=== PATIENT | male | born 1945 | race Caucasian/White ===

== ENCOUNTER 2025-10-16 23:33 | Emergency (ER) | payer OTHER, SELFPAY ==
--- OUTSIDE RECORDS SUMMARY | 2025-09-03 03:20 | XMS_ITS ---
Author Organization [facility] Address [address] [place], [place] [id number] Care Team Providers Care Dye Tub Operator Name Role Phone ROMEO MORILLO Unavailable [phone] iDck Ashton Unavailable Unavailable REASON FOR VISIT *General care Encounters Encounter Location Date Provider Diagnosis [facility] [address] [place], [place] [phone] 09/03/2025 ROMEO MORILLO Plan Of Treatment No Information Progress Notes * JORDIN JAVIERDOB:1945 (79 yo M)Acc No.[id number]:09/03/2025 Patient: JORDIN LANE Provider: Dayan Morillo DPM :1945 A ge:79 Y S ex:Male Date:09/03/2025 Address:[address] [place], [place] [id number] Subjective: * Chief Complaints: * * General care * Electronic signature of ROMEO MORILLO DPM on 10/17/2025 at 12:45 AM TEAM OTR TRUCK DRIVER Sign off status: Pending * Provider: Dayan Morillo DPM Date: Generated for Abhilash ng/Fajosemanuel/eTransmitting on: 1 12/18/2024 12:45 AM TEAM OTR TRUCK DRIVER
--- NOTE | ~2025-10-16 | XR_ITS ---
Examination: XR chest 1V portable Clinical History: SOB Comparison: None Technique: Portable AP Findings: Left tunneled central line. Heart size normal. Lungs clear. No acute bony abnormality. IMPRESSION: 1. No acute cardiopulmonary findings given portable technique. Recommend PA and lateral films with deep inspiration. Reviewed, dictated and finalized at location R. STRIAL CHEMIST IMPRESSION: 1. No acute cardiopulmonary findings given portable technique. Recommend PA an d lateral films with deep inspiration.
[2025-10-16 23:56] VITALS: BP 87/50; PULSE 98; RESP 16; TEMP 36.5; O2SAT 96
[2025-10-17] VITALS (10 sets, daily range): BP systolic 86–145; BP diastolic 49–111; PULSE 69–78; RESP 10–26; TEMP 36.4; O2SAT 96–100
--- NOTE | 2025-10-17 00:21 | ECG_ITS ---
Test Date: 2025-10-17 00:34:38 Measurements Intervals Rolla Rate: 75 P: 43 OK: 174 QRS: 31 QRSD: 110 T: 65 QT: 400 QTc: 450 Interpretive Statements SINUS RHYTHM LOW QRS VOLTAGE IN PRECORDIAL LEADS BORDERLINE ST-T WAVE ABNORMALITY- ANTERIOR LEADS BASELINE ARTIFACT- I, II, III, AVR, AVL ,AVF, V1-V6 BORDERLINE ECG No previous ECG available for comparison Electronically Signed On 10-17-2025 06:19:44 PLASTICS PROCESS HAND by Shashi Marte D.O.
[2025-10-17 00:36] LABS: Alanine Aminotransferase 12 U/L (6-50); Albumin Level 3.9 g/dL (3.5-5.1); Alkaline Phosphatase 106 U/L (38-126); Anion Gap 14 mmol/L (4-12); Aspartate Amino Transferase 20 U/L (17-59); Bilirubin,Total 0.7 mg/dL (0.2-1.3); Blood Urea Nitrogen 53 mg/dL (9-20); Calcium 8.4 mg/dL (8.4-10.2); Carbon Dioxide 17 mmol/L (22-30); Chloride 87 mmol/L (98-107); Estimated CRCL calculation 4 ml/min; Estimated Glomerular Filt Rate 4; Glucose 115 mg/dL (65-110); Potassium 4.9 mmol/L (3.4-5.0); Sodium 118 mmol/L (137-145); Total Protein 7.7 g/dL (6.3-8.2)
--- NOTE | 2025-10-17 00:45 | ED_ITS ---
HPI - General Adult General Chief complaint: Recheck/Abnormal Lab/Rx Stated complaint: abnormal labs hx kidney failure Time Seen by Provider: 10/17/25 00:15 History of Present Illness HPI narrative: 79-year-old male present [facility] the emergency department [facility] for evaluation for elevated creatinine. 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 Patient is not on dialysis. Patient states he has not had treatment recently due to declining health. 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 Related Data Allergies Allergy/AdvReac Type Severity Reaction Status Date / Time No Known Allergies Allergy Verified 10/16/25 23:35 Review of Systems 2 Review of Systems: All systems reviewed & are unremarkable except as noted in HPI and below Exam 2 Narrative: APPEARANCE: Cachectic and ill-appearing HEAD: normocephalic, atraumatic. EYES: PERRLA/EOMI, conjunctivae clear. NOSE: Normal no drainage EARS:TMS clear with good light reflex. THROAT: Pharynx clear, no exudate. NECK: Supple. No adenopathy, no masses. RESPIRATORY: Airway patent, respirations nonlabored. Clear to auscultation bilaterally, no rales, rhonchi, wheezing. CARDIOVASCULAR: Regular rate and rhythm without murmurs rubs or gallops. ABDOMINAL: Soft, nontender, nondistended, normal bowel sounds MUSCULOSKELETAL: Moves all extremities. Strength/ROM intact, No edema, No calf tenderness. NEURO: Alert. Cranial nerves II through XII intact. Good gait. Good coordination SKIN: Warm, dry. Normal Color Course Vital Signs Vital signs: Vital Signs Temperature 97.7 F 10/16/25 23:56 Pulse Rate 98 10/16/25 23:56 Respiratory Rate 16 10/16/25 23:56 Blood Pressure 87/50 L 10/16/25 23:56 Pulse Oximetry 96 10/16/25 23:56 Oxygen Delivery Room Air 10/16/25 23:56 Temperature 97.5 F L 10/17/25 00:02 Pulse Rate 69 10/17/25 05:45 Respiratory Rate 14 10/17/25 05:45 Blood Pressure 102/68 10/17/25 05:45 Pulse Oximetry 100 10/17/25 05:45 Oxygen Delivery Nasal Cannula 10/17/25 00:02 Oxygen Flow Rate 3 10/17/25 00:02 [facility] Narrative Medical decision making narrative: 79-year-old male presents emergency department for evaluation for worsening outpatient labs. Patient does have history of chronic kidney disease and is currently being treated at [facility] for Rosman cell carcinoma of the scalp. Patient gets his treatment at [place]. Patient is willing to go there or to [place]. Patient has a sodium of 118 and a creatinine of 11.4 with a BUN of 53. Patient has no prior history of being on dialysis. Case discussed with [facility] and patient was accepted for transfer. Patient was stable time of transfer. Differential Diagnosis Differential Diagnosis: Hypokalemia, hyponatremia, pre renal, obstructive uropathy Lab Data [facility] Lab Attestation statement: I personally reviewed the patient's lab results. 10/17/25 00:16 10/17/25 00:16 Labs: Lab Results 10/17/25 10/17/25 10/17/25 Range/Units 00:16 00:30 02:27 WBC 9.9 (4.5-10.0) K/mm3 RBC 3.66 L (4.6-6.20) M/mm3 Hgb 11.7 L (14.0-18.0) g/dL Hct 32.4 L (42.0-52.0) % MCV 88.5 (80-100) fl MCH 32.0 (26-34) pg MCHC 36.1 H (32-36) g/dl RDW 16.6 H (11.5-14.5) % Plt Count 237 (150-375) k/mm3 MPV 8.8 (7.4-10.4) fl Immature Gran % (Auto) Not Reportable Neut % (Auto) Not Reportable Lymph % (Auto) Not Reportable Archuleta % (Auto) Not Reportable Eos % (Auto) Not Reportable Baso % (Auto) Not Reportable Lymph # (Auto) Not Reportable Archuleta # (Auto) Not Reportable Eos # (Auto) Not Reportable Baso # (Auto) Not Reportable Abs Immat Gran (auto) Not Reportable Absolute Neuts (auto) Not Reportable Absolute Nucleated RBC Not Reportable Total Counted 100 Neutrophils % (Manual) 65 (46-73) % Band Neutrophils % Not Reportable Lymphocytes % (Manual) 24.0 (18-44) % Monocytes % (Manual) 9 (3-9) % Eosinophils % (Manual) 2 (0-4) % Nucleated RBC % Not Reportable Abs Lymphs (Manual) 2.37 (1.1-4.5) K/mm3 Abs Monocytes (Manual) 0.89 (0.1-0.90) K/mm3 Absolute Eos (Manual) 0.19 (0.02-0.50) K/mm3 Platelet Estimate Adequate (Adequate) Anisocytosis 1+ Ovalocytes 1+ [place] Cells 1+ Schistocytes Rare Sodium 118 L* (137-145) mmol/L Potassium 4.9 (3.4-5.0) mmol/L Chloride 87 L (98-107) mmol/L Carbon Dioxide 17 L (22-30) mmol/L Anion Gap 14 H (4-12) mmol/L BUN 53 H (9-20) mg/dL Creatinine 11.44 H (0.7-1.3) mg/dL Estim Creat Clear Calc 4 ml/min Estimated GFR 4 L (59 - ) Glucose 115 H (65-110) mg/dL Calcium 8.4 (8.4-10.2) mg/dL Total Bilirubin 0.7 (0.2-1.3) mg/dL AST 20 (17-59) U/L ALT 12 (6-50) U/L Alkaline Phosphatase 106 (38-126) U/L NT-Pro-B Natriuret Pep 772 H (19.9-100) pg/mL Total Protein 7.7 (6.3-8.2) g/dL Albumin 3.9 (3.5-5.1) g/dL Ur Random Sodium 53 meq/L Urine Creatinine 157.1 mg/dL Influenza A (RT-PCR) Negative (Negative) Influenza B (RT-PCR) Negative (Negative) RSV (RT-PCR) Negative (Negative) SARS-CoV-2 RNA (RT-PCR) Negative (Negative) Imaging Data Radiologist's impression: ITS Impressions Chest X-Ray 10/17/25 06:45 IMPRESSION: 1. No acute cardiopulmonary findings given portable technique. Recommend PA and lateral films with deep inspiration. Discharge Plan Discharge Clinical Impression: Acute kidney injury superimposed on CKD Patient Disposition: Acute Care Hospital Condition: Serious Instructions: Antibiotic Form Patient Language: Mongolian Follow-up/Referrals: PHYSICIAN,WEB CONTENT PRODUCER [Primary Care Provider, Internal Medicine]
--- OUTSIDE RECORDS SUMMARY | 2025-10-17 00:46 | XMS_ITS | Clinical Summary ---
Author Organization [facility] Address [address] [place] [address] Care Team Providers Care Shaping Machine Operator Name Role Phone Dick Ashton MD Primary Care Provider Social History Tobacco Use Types Packs/Day Years Used Date Smoking Tobacco: Never Assessed Sex and Gender Information Value Date Recorded Sex Assigned at Not on file Legal Sex Male 5:25 PM CDT Gender Identity Not on file Sexual Orientation Not on file Last Filed Vital Signs Vital Sign Reading Time Taken Comments Blood Pressure 124/70 06/15/2011 1:30 PM CDT Pulse 107 06/15/2011 1:30 PM CDT Temperature - - Respiratory Rate - - Oxygen Saturation - - Inhaled Oxygen Concentration - - Weight 76.2 kg (168 lb) 06/15/2011 1:30 PM CDT Height 170.2 cm (5' 7) 06/15/2011 1:30 PM CDT Body Mass Index 26.31 06/15/2011 1:30 PM CDT Plan of Treatment Health Maintenance Due Date Last Done Comments DTaP, Tdap and Td Vaccines (1 - Tdap) 1962 Pneumococcal Vaccine: 50+ Years (1 of 1 - PCV) 1993 Zoster Vaccines (1 of 2) 1993 Annual Medicare Wellness Visit 2008 RSV Immunization or 60+ Years (1 - 1-dose 75+ series) 2018 COVID-19 Vaccine ( - season) 2025 02/09/2022, 07/28/2021, 01/02/2021, Additional history exists Influenza Adult (#1) 2025 09/13/2019, 09/18/20 05 Hepatitis A Vaccines Aged Out No long er eligible based on patient's age to complete this topic Meningococcal B Vaccine Aged Out No l onger eligible based on patient's age to complete this topic Meningococcal Vaccine Aged Out No christine sj eligible based on patient's age to complete this topic RSV Immunizations Under 20 Months Aged Out No longer eligible based on patient's age to complete this topic Insurance [facility] Care Teams Shaping Machine Operator Relationship Specialty Start Date End Date Dick Ashton MD [address] [place] [address] [place] [address] PCP - General FAMILY PRACTICE 11/23/21
--- OUTSIDE RECORDS SUMMARY | 2025-10-17 00:46 | XMS_ITS | Encounter Summary ---
Author Organization [facility] Address [address] [place] [address] Care Team Providers Care Ssis Architect Name Role Phone Dick Ashton MD Primary Care Provider Encounter Details Date Type Department Care Team (Late st Contact Info) Description 10/16/2025 Lab Requisition [facility] [address] [place] [address] Kirsten Baker [address] [place] [phone] Social History Tobacco Use Types Packs/Day Years Used Date Smoking Tobacco: Never Smokeless Tobacco: Never Alcohol Use Standard Drinks/Week Comments Yes 2 (1 standard drink = 0.6 oz pur e alcohol) social Sex and Gender Information Value Date Recorded Sex Assigned at Not on file Legal Sex Male 9:37 PM DOUBLE BACK OPERATOR Gender Identity Not on file Sexual Orientation Not on file documented as of this encounter Plan of Treatment Not on file documented as of this encounter Procedures Procedure Name Priority Date/Time Associated Diagnosis Comments COMPREHENSIVE METABOLIC PANEL STAT 10/16/2025 5:17 PM DOUBLE BACK OPERATOR documented in this encounter Results * (ABNORMAL) COMPREHENSIVE METABOLIC PANEL (10/16/2025 5:17 PM DOUBLE BACK OPERATOR) Glucose 143(H) 70 - 99 mg/dL 10/16/2025 5:57 PM DOUBLE BACK OPERATOR [facility] Sodium 121(LL) 136 - 145 mmol/L 10/16/2025 5:57 PM [facility] Potassium 5.1 3.5 - 5.1 mmol/L 10/16/2025 5:57 PM [facility] Chloride 88(L) 98 - 107 mmol/L 10/16/2025 5:57 PM [facility] CO2 15(L) 22 - 29 mmol/L 10/16/2025 5:57 PM [facility] Calcium 8.2(L) 8.4 - 10.4 mg/dL 10/16/2025 5:57 PM [facility] Anion Gap 18(H) 6 - 16 mmol/L 10/16/2025 5:57 PM [facility] BUN 55(H) 7 - 26 mg/dL 10/16/2025 5:57 PM [facility] Creatinine 11.48(H) 0.70 - 1.30 mg/dL 10/16/2025 5:57 PM [facility] Alkaline Phosphatase 100 40 - 150 U/L 10/16/2025 5:57 PM [facility] ALT 7 6 - 57 U/L 10/16/2025 5:57 PM [facility] AST 17 10 - 48 U/L 10/16/2025 5:57 PM [facility] Protein Total 7.0 6.4 - 8.3 gm/dL 10/16/2025 5:57 PM [facility] Albumin 2.6(L) 3.1 - 4.5 gm/dL 10/16/2025 5:57 PM [facility] Bilirubin Total 0.4 0.2 - 1.2 mg/dL 10/16/2025 5:57 PM [facility] eGFR by CKD-EPI 4(L) >=90 mL/min/1. 73 m2 10/16/2025 5:57 PM [facility] Comment:Estimated Glomerular Filtration Rate (eGFR) calculated using the CKD-EPI Creatinine Equation (2020), per the National Kidney Foundation and [place] Society of Nephrology recommendations. Blood BLOOD SPECIMEN / Unknown Venipuncture / Unknown 10/16/2025 5:17 PM DOUBLE BACK OPERATOR 10/16/2025 5:17 PM DOUBLE BACK OPERATOR us Kirsten Pendegraft LAB - CHEMISTRY ORDERABLES Guerita l Result [facility] [address] [place] [address] documented in this encounter Visit Diagnoses Not on filedocumented in this encounter Care Teams Ssis Architect Relationship Specialty Start Date End Date Dick Ashton MD PCP - General Family Medicine 09/13/18 documented as of this encounter
--- OUTSIDE RECORDS SUMMARY | 2025-10-17 00:46 | XMS_ITS | Encounter Summary ---
Author Organization [facility] Address [address] [place] [address] Care Team Providers Care Automotive Brake Specialist Name Role Phone Dick Ashton MD Primary Care Provider Encounter Details Date Type Department Care Team (Late st Contact Info) Description 11/10/2022 Lab Requisition [facility] Derm[facility] Lab [address] [place] [address] Karson Mays MD [address] [place] [address] Social History Tobacco Use Types Packs/Day Years Used Date Smoking Tobacco: Never Smokeless Tobacco: Never Alcohol Use Standard Drinks/Week Comments Yes 2 (1 standard drink = 0.6 oz pur e alcohol) social Sex and Gender Information Value Date Recorded Sex Assigned at Not on file Legal Sex Male 9:37 PM ROLLING ATTENDANT Gender Identity Not on file Sexual Orientation Not on file documented as of this encounter Plan of Treatment Not on file documented as of this encounter Procedures Procedure Name Priority Date/Time Associated Diagnosis Comments DERMATOPATHOLOGY Routine 2022 12:0 0 AM ROLLING ATTENDANT documented in this encounter Results * DERMATOPATHOLOGY (2022 12:00 AM ROLLING ATTENDANT) Case Report Dermatopathology Report Case: [id number] Authorizing Provider: Karson Mays MD Collected: 2022 12:00 AM Ordering Location: [facility] DermPath Lab Received: 11/10/2022 02:40 PM Pathologist: Jumana Farrell MD Specimens: A) - Skin, mid anterior scalp B) - Skin, left nasal tip 3 4:05 PM [facility] Final Diagnosis Specimen A. 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 The specimen consists of a shave biopsy measuring 5x5x2 mm. Jar 0. Specimen B: Received is one formalin filled container labeled with the patient's name and designated left nasal tip. The specimen consists of a shave biopsy measuring 4x3x1 mm. Jar 0. 3 4:05 PM [facility] Microscopic Description Specimen A. SKIN, mid anterior scalp: Sections show a tumor composed of uniform, small, round to oval cells with a vesicular nucleus and small nucleoli. There are numerous mitoses and focal necrosis. The cells are present as sheets and nests. Pancytokeratin and CK20 immunostain shows paranuclear dot positivity. Synaptophysin and chromogranin are positive in the tumor cells. CD43 and TTF1 are nonreactive. Specimen B. SKIN, left nasal tip: Within the dermis there are aggregates of basaloid cells with a high nuclear to cytoplasmic ratio and peripheral palisading. 3 4:05 PM [facility] Disclaimer An external and internal positive and negative controls are appropriate for the histochemical, immunohistochemical and immunofluorescence stain(s) in this case (if any), except where stated explicitly. The performance characteristics of the stain(s) cited in this report were developed and its performance characteristic determined by the Dermatopathology Laboratory at [facility], directed by Dr. Aakash Farrell. These tests need not be, and therefore are not, approved by the [place] Food and Drug Administration. The tests are used for clinical purposes. Billing Codes Specimen Charges Stain Charges 37804 15844 1 1 [id number] 69143 07484 04705 70796 1 1 1 1 1 1 3 4:05 PM ROLLING ATTENDANT DERMATOPATHOLOGY LABORATORY Embedded Images 3 4:05 PM ROLLING ATTENDANT DERMATOPATHOLOGY LABORATORY Pathology/Cytology TISSUE SPECIMEN FROM SKIN / Unknown 2022 11/10/2022 2:40 PM ROLLING ATTENDANT Miscellaneous samples (specimen) TISSUE SPECIMEN FROM SKIN / Unknown 2022 11/10/2022 2:40 PM ROLLING ATTENDANT Karson Mays MD LAB - PATHOLOGY/CYTOLOGY ORDER JARED Final Result DERMATOPATHOLOGY LABORATORY [facility] - Department of Dermatology [facility] Specialized Medicine [address] [place] [address], [address] [phone] documented in this encounter Visit Diagnoses Not on filedocumented in this encounter Care Teams Automotive Brake Specialist Relationship Specialty Start Date End Date Dick Ashton MD PCP - General Family Medicine 09/13/18 documented as of this encounter
--- OUTSIDE RECORDS SUMMARY | 2025-10-17 00:46 | XMS_ITS | Encounter Summary ---
Author Organization [facility] Address [address] [place] [address] Care Team Providers Care Furniture Lumber Production Worker Name Role Phone Dick Ashton MD Primary Care Provider Encounter Details Date Type Department Care Team (Late st Contact Info) Description 11/21/2020 Lab Requisition [facility] Care DermPath Lab [address] [facility] [place] [address] Karson Mays MD [address] [place] [place] [address] Social History Tobacco Use Types Packs/Day Years Used Date Smoking Tobacco: Never Smokeless Tobacco: Never Alcohol Use Standard Drinks/Week Comments Yes 2 (1 standard drink = 0.6 oz pur e alcohol) social Sex and Gender Information Value Date Recorded Sex Assigned at Not on file Legal Sex Male 9:37 PM DINING SERVICES DIRECTOR Gender Identity Not on file Sexual Orientation Not on file documented as of this encounter Plan of Treatment Not on file documented as of this encounter Procedures Procedure Name Priority Date/Time Associated Diagnosis Comments DERMATOPATHOLOGY Routine 11/20/2020 3:27 AM DINING SERVICES DIRECTOR documented in this encounter Results * DERMATOPATHOLOGY (11/20/2020 3:27 AM DINING SERVICES DIRECTOR) Case Report Dermatopathology Report Case: [id number] Authorizing Provider: Karson Mays MD Collected: 11/20/2020 03:27 AM Ordering Location: [facility] DermPath Lab Received: 11/21/2020 07:11 AM Pathologist: Antonieta Welch MD Specimen: Skin, left lower forehead 1:31 PM [facility] Final Diagnosis Specimen A. SKIN, left lower forehead: BENIGN VERRUCOUS KERATOSIS, INFLAMED (L82.1) 1:31 PM [facility] DERMATOPATHOLOGY [facility]ORATORY at [address] DINING SERVICES DIRECTOR Clinical History BCCA vs SCCA. Path # [id number]. 1:31 PM [facility] Gross Description Specimen A: Received is one formalin filled container labeled with the patient's name and designated left lower forehead. The specimen consists of a shave biopsy measuring 5a0x0ij. Jar 0. 1:31 PM [facility] Microscopic Description Specimen A. SKIN, left lower forehead: Sections show hyperkeratosis, papillomatosis, hypergranulosis, and acanthosis. Inflammatory cells are present within the dermis. These histological findings can be seen in a verruca vulgaris or a seborrheic keratosis. 1:31 PM [facility] DERMAT[facility] Disclaimer An external and internal positive and negative controls are appropriate for the histochemical, immunohistochemical and immunofluorescence stain(s) in this case (if any), except where stated explicitly. The performance characteristics of the stain(s) cited in this report were developed and its performance characteristic determined by the Dermatopathology Laboratory at [facility], directed by Dr. Aakash Farrell. These tests need not be, and therefore are not, approved by the [place] Food and Drug Administration. The tests are used for clinical purposes. Billing Codes Specimen Charges Stain Charges 70793 1 1:31 PM [facility] DERMATOPATHOLOGY [facility]ATORY Embedded Images 1:31 PM [facility] D[facility]MAT[facility] Pathology/Cytolo gy TISSUE SPECIMEN FROM SKIN / Unknown 11/20/2020 3:27 AM DINING SERVICES DIRECTOR 11/21/2020 7:11 AM [facility] Karson Mays MD LAB - PATHOLOGY/CYTOLOGY ORDER JARED Final Result DERMATOPATHOLOGY LABORATORY [facility] - Department of Dermatology [facility] Medicine [address] [place] [address], [address] [phone] documented in this encounter Visit Diagnoses Not on filedocumented in this encounter Care Teams Furniture Lumber Production Worker Relationship Specialty Start Date End Date Dick Ashton MD PCP - General Family Medicine 09/13/18 documented as of this encounter
--- OUTSIDE RECORDS SUMMARY | 2025-10-17 00:46 | XMS_ITS | Encounter Summary ---
Author Organization [facility] Address [address] [place] [address] Care Team Providers Care Foreign Exchange Services Manager Name Role Phone Dick Ashton MD Primary Care Provider Encounter Details Date Type Department Care Team (Late st Contact Info) Description 10/20/2021 Lab Requisition [facility] Care DermPath Lab [address] [place] [phone] Karson Mays MD [address] [place] [address] Social History Tobacco Use Types Packs/Day Years Used Date Smoking Tobacco: Never Smokeless Tobacco: Never Alcohol Use Standard Drinks/Week Comments Yes 2 (1 standard drink = 0.6 oz pur e alcohol) social Sex and Gender Information Value Date Recorded Sex Assigned at Not on file Legal Sex Male 9:37 PM SYSTEMS ENG Gender Identity Not on file Sexual Orientation Not on file documented as of this encounter Plan of Treatment Not on file documented as of this encounter Procedures Procedure Name Priority Date/Time Associated Diagnosis Comments DERMATOPATHOLOGY Routine 10/20/2021 12:0 0 AM SYSTEMS ENG documented in this encounter Results * DERMATOPATHOLOGY (10/20/2021 12:00 AM SYSTEMS ENG) Case Report Dermatopathology Report Case: [id number] Authorizing Provider: Karson Mays MD Collected: 10/20/2021 12:00 AM Ordering Location: [facility] Lab Received: 10/20/2021 02:55 PM Pathologist: Jolene Stuart MD Specimens: A) - Skin, mid anterior scalp B) - Skin, left mid back 12:10 PM [facility] DERMATOPATHOLOGY LABORATORY Final Diagnosis Specimen A. 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 SKIN, left mid back: SEBORRHEIC KERATOSIS (L82.1) 12:10 PM [facility] DERMATOPATHOLOGY LABORATORY at 1210 SYSTEMS ENG Clinical History A: BCCA vs SCCA. Path # [id number]. B: BCCA vs SCCA. Path # [id number]. 12:10 PM [facility] DERMATOPATHOLOGY LABORATORY Gross Description Specimen A: Received is one formalin filled container labeled with the patient's name and designated mid anterior scalp. The specimen consists of a shave measuring 7l8u4cg. Jar 0. Specimen B: Received is one formalin filled container labeled with the patient's name and designated left mid back. The specimen consists of a shave measuring [id number]. Jar 0. 12:10 PM [facility] DERMATOPATHOLOGY LABORATORY Microscopic Description Specimen A. SKIN, mid anterior scalp: The epidermis shows parakeratosis, full thickness disorderly maturation of keratinocytes, mitoses at different levels, and dyskeratotic cells. The proliferation extends down adnexal structures. Specimen B. SKIN, left mid back: Sections show an acanthotic lesion composed of relatively uniform keratinocytes. There is hyperkeratosis and pseudo horn cysts formation. 12:10 PM [facility] DERMATOPATHOLOGY LABORATORY Disclaimer An external and internal positive and negative controls are appropriate for the histochemical, immunohistochemical and immunofluorescence stain(s) in this case (if any), except where stated explicitly. The performance characteristics of the stain(s) cited in this report were developed and its performance characteristic determined by the Dermatopathology Laboratory at [facility], directed by Dr. M. Tracy Farrell. These tests need not be, and therefore are not, approved by the [place] Food and Drug Administration. The tests are used for clinical purposes. Billing Codes Specimen Charges Stain Charges 77383 57555 1 1 1 12:10 PM SYSTEMS ENG DERMATOPATHOLOGY LABORATORY Embedded Images 12:10 PM SYSTEMS [facility] DERMATOPATHOLOGY LABORATORY Pathology/Cytology TISSUE SPECIMEN FROM SKIN / Unknown 10/20/2021 10/20/2021 2:55 PM SYSTEMS ENG Miscellaneous samples (specimen) TISSUE SPECIMEN FROM SKIN / Unknown 10/20/2021 10/20/2021 2:55 PM SYSTEMS ENG us Karson Mays MD LAB - PATHOLOGY/CYTOLOGY ORDER JARED Final Result DERMATOPATHOLOGY LABORATORY [facility] - Department of Dermatology [facility] [place] [facility] Medicine [address] [place] [address], [address] [phone] documented in this encounter Visit Diagnoses Not on filedocumented in this encounter Care Teams Foreign Exchange Services Manager Relationship Specialty Start Date End Date Dick Ashton MD PCP - General Family Medicine 09/13/18 documented as of this encounter
--- OUTSIDE RECORDS SUMMARY | 2025-10-17 00:46 | XMS_ITS | Patient Health Record ---
Author Organization [facility] Address [address] [place], [place] [id number] Care Team Providers Care Clinical Appeals Rn Name Role Phone ROMEO WASHINGTON Unavailable [phone] Dick Ashton Unavailable Unavailable Allergies No Known Allergies Reason For Referral Reason Referral Request () Diagnosis 1 Pain in right toe(s) (M79.674) Diagnosis 2 Pain in left toe(s) (M79.675) Referral Organization [facility] Referring Provider First Name ROMEO Referring Provider Last Name PADMINI Referring Provider Speciality Podiatry Referred Provider Dick Ashton Referred Provider Specialty Family Medic ine Referral Priority Routine Reason Essence Referral ([id number]) 08/22/2025 REF EXT +1 ( 2 TOTAL ) / REF EXP EXT 02/05/2026. 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, bilateral legs (I70.213) Diagnosis 3 Pain in right toe(s) (M79.674) Diagnosis 4 Tinea unguium (B35.1 ) Referred Organization [facility] Referred Provider ROMEO WASHINGTON Referred Address [address],[place], [id number], Referred Provider Specialty Podiatry Referral Priority Routine Reason ESSENCE REFERRAL REQ UEST ( APPOINTMENT: 06/05/2025 ) Diagnosis 1 Fungal infection of nail (B35.1) Diagnosis 2 Pain in left toe(s) (M79.675) Diagnosis 3 Pain in right toe(s) (M79.674) Diagnosis 4 Atherosclerosis of n ative arteries of extremities with intermittent claudication, bilateral legs (I70.213) Referral Organization [facility] Referring Provider First Name ROMEO Referring Provider Last Name [facility] Referring Provider Speciality Podiatry Referred Provider Dick Ashton Referred Provider Specialty General Prac sonia Referral Priority Routine Reason ESSENCE REFERRAL REQ UEST ( APPOINTMENT: 09/03/2025 ) Diagnosis 1 Pain in right toe(s) (M79.674) Diagnosis 2 Pain in left toe(s) (M79.675) Diagnosis 3 Fungal infection of nail (B35.1) Diagnosis 4 Atherosclerosis of n ative arteries of extremities with intermittent claudication, bilateral legs (I70.213) Referral Organization [facility] Referring Provider First Name ROMEO Referring Provider Last Name PADMINI Referring Provider Speciality Podiatry Referred Provider Dick Ashton Referred Provider Specialty General Prac sonia Referral Priority Routine Medications Medication SIG (Take, Route, Frequency, Duration) Notes Start Date End Date Status loperamide hydrochloride 2 MG Oral Tablet ORAL loperamide hydrochloride 2 M G Oral TabletOriginal Medicationloperamide hydrochloride 2 MG Oral Tablet *Reorder from [employer] for eRx and Interaction Alerts* 4 Active Metoprolol Tartrate 100 MG Oral Tablet ORAL metoprolol tartrate 100 MG Oral TabletOriginal Medicationmetoprolol tartrate 100 MG Oral Tablet *Reorder from [employer] for eRx and Interaction Alerts* 4 Active ranitidine 150 MG Oral Tablet ORAL ranitidine 150 MG Oral TabletOriginal Medicationranitidine 150 MG Oral Tablet *Reorder from [employer] for eRx and Interaction Alerts* 4 Active azaTHIOprine 100 MG Oral Tablet ORAL azathioprine 100 MG Oral TabletOriginal Medicationazathioprine 100 MG Oral Tablet *Reorder from [employer] for eRx and Interaction Alerts* 4 Active terazosin 5 MG Oral Capsule ORAL terazosin 5 MG Oral CapsuleOriginal Medicationterazosin 5 MG Oral Capsule *Reorder from [employer] for eRx and Interaction Alerts* 4 Active 0.8 ML adalimumab 50 MG/ML Prefilled Syringe [Humira] 0.8 ML adalimumab 50 MG/ML Prefilled Syringe [Humira]Original Medication0.8 ML adalimumab 50 MG/ML Prefilled Syringe [Humira] *Reorder from [facility] for eRx and Interaction Alerts* 4 Active amitriptyline hydrochloride 50 MG Oral Tablet ORAL amitriptyline hydrochloride 50 MG Oral TabletOriginal Medicationamitriptyline hydrochloride 50 MG Oral Tablet *Reorder from [facility] for eRx and Interaction Alerts* 4 Active aspirin 81 MG Delayed Release Oral Tablet ORAL aspirin 81 MG Delayed Releas e Oral TabletOriginal Medicationaspirin 81 MG Delayed Release Oral Tablet *Reorder from [facility] for eRx and Interaction Alerts* 4 Active atropine sulfate 0.025 MG / diphenoxylate hydrochloride 2.5 MG Oral Tablet [Lomotil] ORAL atropine sulfate 0.025 MG / diphenoxylate hydrochloride 2.5 MG Oral Tablet [Lomotil]Original Medicationatropine sulfate 0.025 MG / diphenoxylate hydrochloride 2.5 MG Oral Tablet [Lomotil] *Reorder from [facility] 4 Active cholecalciferol 0.025 MG Oral Capsule ORAL cholecalciferol 0.025 MG Ora l CapsuleOriginal Medicationcholecalciferol 0.025 MG Oral Capsule *Reorder from [facility] for eRx and Interaction Alerts* 4 Active citalopram 40 MG Oral Tablet ORAL citalopram 40 MG Oral TabletOriginal Medicationcitalopram 40 MG Oral Tablet *Reorder from [facility] for eRx and Interaction Alerts* 4 Active dicyclomine hydrochloride 10 MG Oral Capsule [Bentyl] ORAL dicyclomine hydrochloride 10 MG Oral Capsule [Bentyl]Original Medicationdicyclomine hydrochloride 10 MG Oral Capsule [Bentyl] *Reorder from [facility] for eRx and Interaction Alerts* 4 Active ferrous sulfate 325 MG Oral Tablet ORAL ferrous sulfate 325 MG Oral TabletOriginal Medicationferrous sulfate 325 MG Oral Tablet *Reorder from [facility] for eRx and Interaction Alerts* 4 Active Immunizations Vaccine Route Administration Date Status Comme nts Pneumococcal polysaccharide PPV23 Unknown 08/12/2023 Ad ministered Influenza, high dose seasonal Unknown 08/12/2023 Admini stered Social History Tobacco Use: Social History Observation Description Date Details (start date - stop date) Never Smoker NA - NA Social History Drug/Alcohol: Social Info Question Answer Notes AUDIT-C (Standard) Did you have a drink containing alcohol in the past year? Yes How often did you have a drink containing alcohol in the past year? 2 to 4 times a month (2 points) How many drinks did you have on a typical day when you were drinking in the past year? 1 or 2 drinks (0 point) How often did you have six or more drinks on one occasion in the past year? Declined to specify (0 point) Points 2 Interpretation Negative Tobacco Use: Social Info Question Answer Notes Tobacco Control (Standard) Tobacco use: Nonsmoker Additional Details Category Social Info Options Details Migrated Social History Migrated Social History History of tobacco use : , Smoking Status : Former tobacco user Vital Signs Height-cm 170.18 cm 06/05/2025 Weight-kg 73.48 kg 06/05/2025 Height 67 in 06/05/2025 Weight 162 lbs 06/05/2025 BMI 25.37 kg/m2 06/05/2025 Encounters Encounter Location Date Provider Diagnosis [facility] [address] [facility] [address] [place], [place] [id number] 06/05/2025 ROMEO WASHINGTON Fungal infection of nail B35.1 ; Pain in right toe(s) M79.674 ; Pain in left toe(s) M79.675 and Atherosclerosis of standing rock arteries of extremities with intermittent claudication, bilateral legs I70.213 Assessments Encounter Date Diagnosis (ICD Code) Assessment Notes Treatment Notes Treatment Clinical Notes Section Notes 06/05/2025 Fungal infection of nail (ICD-10 - B35.1) Nails 1-5 Bilateral were debrided extensively with nail nippers and emery board, reducing length and girth to pink healthy tissue with any subungual debris and necrotic tissue removed 06/05/2025 Pain in right toe(s) (ICD-10 - M79.674) 06/05/2025 Pain in left toe(s) (ICD-10 - M79.675) 06/05/2025 Atherosclerosis of standing rock arteries of extremities with intermittent claudication, bilateral legs (ICD-10 - I70.213) Plan Of Treatment No Information Insurance Providers Payer Name Payer Address Payer Phone Subscriber Number Group Number Insured Name Patient Relationship to Insured Coverage Start Date Coverage End Date [employer] [address] [place] [id number] JORDIN JAVIER Self - patient is the insured Medical (General) History Surgical History Surgery Date(Month/Year) Hernia 194, 1974 bowel resection 1998,2008,2015 hip replacement left and right , 2000
--- OUTSIDE RECORDS SUMMARY | 2025-10-17 00:46 | XMS_ITS | Encounter Summary ---
Author Organization [facility] Address [address] [place] [address] Care Team Providers Care Results Engineer Name Role Phone Dick Ashton MD Primary Care Provider Encounter Details Date Type Department Care Team (Late st Contact Info) Description 03/12/2003 Abstract [facility] Clinics Conversion Md, Generic Conversion, Social History Tobacco Use Types Packs/Day Years Used Date Smoking Tobacco: Never Assessed Sex and Gender Information Value Date Recorded Sex Assigned at Not on file Legal Sex Male 5:25 PM CDT Gender Identity Not on file Sexual Orientation Not on file documented as of this encounter Plan of Treatment Not on file documented as of this encounter Visit Diagnoses Not on filedocumented in this encounter Care Teams Results Engineer Relationship Specialty Start Date End Date Dick Ashton MD [address] [place] [address] [address] [place] [address] PCP - General FAMILY PRACTICE 11/23/21 documented as of this encounter
--- OUTSIDE RECORDS SUMMARY | 2025-10-17 00:46 | XMS_ITS | Encounter Summary ---
Author Organization [facility] Address [address] [place] [address] Care Team Providers Care Prizer Hand Name Role Phone Dick Ashton MD Primary Care Provider Encounter Details Date Type Department Care Team (Late st Contact Info) Description 01/29/2020 Lab Requisition [facility] Care DermPath Lab [address] 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 Gender Identity Not on file Sexual Orientation Not on file documented as of this encounter Plan of Treatment Not on file documented as of this encounter Procedures Procedure Name Priority Date/Time Associated Diagnosis Comments DERMATOPATHOLOGY Routine 01/29/2020 12:0 0 AM CDT documented in this encounter Results * DERMATOPATHOLOGY (01/29/2020 12:00 AM CDT) Case Report Dermatopathology Report Case: [id number] Authorizing Provider: Karson Mays MD Collected: 01/29/2020 12:00 AM Ordering Location: [facility] DermPath Lab Received: 01/29/2020 02:43 PM Pathologist: Jumana Farrell MD Specimens: A) - Skin, right sideburn B) - Skin, right lateral knee C) - Skin, left mid back 0 12:17 PM T DERMATOPATHOLOGY LABORATORY Final Diagnosis Specimen A. SKIN, right sideburn: SQUAMOUS CELL CARCINOMA, WELL DIFFERENTIATED (C44.329) Specimen B. SKIN, right lateral knee: ACANTHOSIS AND HYPERKERATOSIS (L98.8) (see microscopic description and comment) Specimen C. SKIN, left mid back: BENIGN VERRUCOUS KERATOSIS, INFLAMED WITH OVERLYING CUTANEOUS HORN(L82.1) 0 12:17 PM T DERMATOPATHOLOGY LABORATORY at 1217 CDT Clinical History A: Path# [id number] B: Path# [id number] C: Path# [id number] 0 12:17 PM CDT DERMATOPATHOLOGY LABORATORY Gross Description Specimen A: Received is one formalin filled container labeled with the patient's name and designated right sideburn. The specimen consists of a shave biopsy measuring 8x7x2 mm. Jar 0. Specimen B: Received is one formalin filled container labeled with the patient's name and designated right lateral knee. The specimen consists of a shave biopsy (2 pieces) measuring 7x6x1 and 4x2x1 mm. Jar 0. Specimen C: Received is one formalin filled container labeled with the patient's name and designated left mid back. The specimen consists of a shave biopsy measuring [id number] mm. Jar 0. 0 12:17 PM CDT DERMATOPATHOLOGY LABORATORY Microscopic Description Specimen A. SKIN, right sideburn: Arising in the epidermis and extending into the dermis there are irregularly shaped aggregates of keratinocytes showing evidence of premature cornification. Specimen B. SKIN, right lateral knee: Sections show a superficial biopsy with acanthosis and hyperkeratosis. There is increased pigmentation along the basal layer of the epidermis, especially at the base of the elongated rete ridges. There is minimal dermis present for evaluation with scattered fibroblasts. Additional deeper sections were obtained and reviewed. COMMENT: These histological findings can be seen in a superficial biopsy of a dermatofibroma or a lentigo simplex with underlying fibrosis. The recurrent nature in the clinical history is noted; however, no prior biopsy is available for review. Specimen C. SKIN, left mid back: There is a column of marked compact hyperkeratosis, beneath which there is hyperkeratosis, papillomatosis, hypergranulosis, and acanthosis. Inflammatory cells are present within the dermis. These histological findings can be seen in a verruca vulgaris or a seborrheic keratosis. 0 12:17 PM CDT DERMATOPATHOLOGY LABORATORY Disclaimer An external and internal positive and negative controls are appropriate for the histochemical, immunohistochemical and immunofluorescence stain(s) in this case (if any), except where stated explicitly. The performance characteristics of the stain(s) cited in this report were developed and its performance characteristic determined by the Dermatopathology Laboratory at [facility], directed by Dr. Aakash Farrell. These tests need not be, and therefore are not, approved by the [place] Food and Drug Administration. The tests are used for clinical purposes. Billing Codes Specimen Charges Stain Charges 63939 18723 45229 1 1 1 0 12:17 PM CDT DERMATOPATHOLOGY LABORATORY Embedded Images 0 12:17 PM CDT DERMATOPATHOLOGY LABORATORY Pathology/Cytology TISSUE SPECIMEN FROM SKIN / Unknown 01/29/2020 01/29/2020 2:43 PM CDT Miscellaneous samples (specimen) TISSUE SPECIMEN FROM SKIN / Unknown 01/29/2020 01/29/2020 2:43 PM CDT Miscellaneous samples (specimen) TISSUE SPECIMEN FROM SKIN / Unknown 01/29/2020 01/29/2020 2:43 PM CDT us Karson Mays MD LAB - PATHOLOGY/CYTOLOGY ORDER JARED Final Result DERMATOPATHOLOGY LABORATORY [facility] - Department of Dermatology [address] [place] [address], [facility] [phone] documented in this encounter Visit Diagnoses Not on filedocumented in this encounter Care Teams Prizer Hand Relationship Specialty Start Date End Date Dick Ashton MD PCP - General Family Medicine 09/13/18 documented as of this encounter
--- OUTSIDE RECORDS SUMMARY | 2025-10-17 00:46 | XMS_ITS | Encounter Summary ---
Author Organization [facility] Address [address] [place] [address] Care Team Providers Care Auto Bumper Mechanic Name Role Phone Dick Ashton MD Primary Care Provider Encounter Details Date Type Department Care Team (Late st Contact Info) Description 05/18/2023 Lab Requisition [facility] - DermPath Lab [address] [facility] [place] [phone] Karson Mays MD [address] [place] [address] Social History Tobacco Use Types Packs/Day Years Used Date Smoking Tobacco: Never Smokeless Tobacco: Never Alcohol Use Standard Drinks/Week Comments Yes 2 (1 standard drink = 0.6 oz pur e alcohol) social Sex and Gender Information Value Date Recorded Sex Assigned at Not on file 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 Gender Identity Not on file Sexual Orientation Not on file documented as of this encounter Plan of Treatment Not on file documented as of this encounter Procedures Procedure Name Priority Date/Time Associated Diagnosis Comments DERMATOPATHOLOGY Routine 05/18/2023 12:0 0 AM CDT documented in this encounter Results * DERMATOPATHOLOGY (05/18/2023 12:00 AM CDT) Case Report Dermatopathology Report Case: [id number] Authorizing Provider: Karson Mays MD Collected: 05/18/2023 12:00 AM Ordering Location: [facility] DermPath Lab Received: 05/18/2023 03:20 PM Pathologist: Jumana Farrell MD Specimen: Skin, mid. ant. scalp 3:25 PM CDT DERMATOPATHOLOGY LABORATORY Final Diagnosis Specimen A. SKIN, mid. ant. scalp: DERMAL SCAR (L90.5) TELANGIECTASES (I78.1) (see microscopic description) 3:25 PM CDT DERMATOPATHOLOGY LABORATORY at 1525 CDT Clinical History Metastatic Path#[id number] 3:25 PM CDT DERMATOPATHOLOGY LABORATORY Gross Description Specimen A: Received is one formalin filled container labeled with the patient's name and designated mid. ant. scalp. The specimen consists of a shave biopsy measuring 6x6x2 mm. Jar 0. 3:25 PM CDT DERMATOPATHOLOGY LABORATORY Microscopic Description Specimen A. SKIN, mid. ant. scalp: There are fibroblasts and collagen bundles oriented parallel to the skin surface with elongated blood vessels, some of which are oriented perpendicular to the skin surface. Within the dermis there are dilated thin-walled vessels lined by a single layer of endothelium. Hemosiderophages are also present. CK20 does highlight any epithelial cells. Additional deeper sections were obtained and reviewed. 3:25 PM CDT DERMATOPATHOLOGY LABORATORY Disclaimer An external and internal positive and negative controls are appropriate for the histochemical, immunohistochemical and immunofluorescence stain(s) in this case (if any), except where stated explicitly. The performance characteristics of the stain(s) cited in this report were developed and its performance characteristic determined by the Dermatopathology Laboratory at [facility], directed by Dr. Aakash Farrell. These tests need not be, and therefore are not, approved by the [place] Food and Drug Administration. The tests are used for clinical purposes. Billing Codes Specimen Charges Stain Charges 29170 1 81467 1 3:25 PM CDT DERMATOPATHOLOGY LABORATORY Embedded Images 3:25 PM CDT DERMATOPATHOLOGY LABORATORY Pathology/Cytolog y TISSUE SPECIMEN FROM SKIN / Unknown 05/18/2023 05/18/2023 3:20 PM CDT Karson Mays MD LAB - PATHOLOGY/CYTOLOGY ORDER JARED Final Result DERMATOPATHOLOGY LABORATORY [facility] - Department of Dermatology [facility] [address] [place] [address], [address] [phone] documented in this encounter Visit Diagnoses Not on filedocumented in this encounter Care Teams Auto Bumper Mechanic Relationship Specialty Start Date End Date Dick Ashton MD PCP - General Family Medicine 09/13/18 documented as of this encounter
--- OUTSIDE RECORDS SUMMARY | 2025-10-17 00:46 | XMS_ITS | Encounter Summary ---
Author Organization [facility] Address [address] [place] [address] Care Team Providers Care Director [employer] Marketing Name Role Phone Dick Ashton MD Primary Care Provider Encounter Details Date Type Department Care Team (Late st Contact Info) Description 10/08/2020 Lab Requisition [facility] Care DermPath Lab [address] [place] [address] Karson Mays MD [address] [place] [address] Social History Tobacco Use Types Packs/Day Years Used Date Smoking Tobacco: Never Smokeless Tobacco: Never Alcohol Use Standard Drinks/Week Comments Yes 2 (1 standard drink = 0.6 oz pur e alcohol) social Sex and Gender Information Value Date Recorded Sex Assigned at Not on file Legal Sex Male 9:37 PM MAGAZINE REPAIRER Gender Identity Not on file Sexual Orientation Not on file documented as of this encounter Plan of Treatment Not on file documented as of this encounter Procedures Procedure Name Priority Date/Time Associated Diagnosis Comments DERMATOPATHOLOGY Routine 10/07/2020 12:0 0 AM MAGAZINE REPAIRER documented in this encounter Results * DERMATOPATHOLOGY (10/07/2020 12:00 AM MAGAZINE REPAIRER) Case Report Dermatopathology Report Case: [id number] Authorizing Provider: Karson Mays MD Collected: 10/07/2020 12:00 AM Ordering Location: [facility] DermPath Lab Received: 10/08/2020 06:42 AM Pathologist: Jolene Stuart MD Specimens: A) - Skin, right mid back B) - Skin, left elbow C) - Skin, left forearm 0 5:33 PM [facility] DERMATOPATHOLOGY LABORATORY Final Diagnosis Specimen A. SKIN, right mid back: BENIGN VERRUCOUS KERATOSIS, INFLAMED (L82.1) Specimen B. SKIN, left elbow: SQUAMOUS CELL CARCINOMA, WELL DIFFERENTIATED (C44.629) (see microscopic description and comment) Specimen C. 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 Path # [id number]. B: BCCA vs SCCA. Path # [id number]. C: BCCA vs SCCA. Path # [id number]. 0 5:33 PM [facility] DERMATOPATHOLOGY LABORATORY Gross Description Specimen A: Received is one formalin filled container labeled with the patient's name and designated right mid back. The specimen consists of a shave biopsy (2 pieces) measuring [id number] & [id number]. Jar 0. Specimen B: Received is one formalin filled container labeled with the patient's name and designated left elbow. The specimen consists of a shave biopsy measuring [id number]. Jar 0. Specimen C: Received is one formalin filled container labeled with the patient's name and designated left forearm. The specimen consists of a shave biopsy measuring [id number]. Jar 0. 0 5:33 PM [facility] DERMATOPATHOLOGY LABORATORY Microscopic Description Specimen A. SKIN, right mid back: Sections show hyperkeratosis, papillomatosis, hypergranulosis, and acanthosis. Inflammatory cells are present within the dermis. These histological findings can be seen in a verruca vulgaris or a seborrheic keratosis. Specimen B. SKIN, left elbow: Arising in the epidermis and extending into the dermis there are irregularly shaped aggregates of keratinocytes showing evidence of premature cornification. Additional deeper sections were obtained and reviewed. COMMENT: This case was also reviewed by Dr. Vicky Villegas, who agrees. Specimen C. SKIN, left forearm: There is a dome-shaped portion of skin with psoriasiform epidermal hyperplasia, compact hyperkeratosis, and fibrosis of the papillary dermis associated with a superficial perivascular lymphohistiocytic infiltrate. 0 5:33 PM MAGAZINE REPAIRER DERMATOPATHOLOGY LABORATORY Disclaimer An external and internal positive and negative controls are appropriate for the histochemical, immunohistochemical and immunofluorescence stain(s) in this case (if any), except where stated explicitly. The performance characteristics of the stain(s) cited in this report were developed and its performance characteristic determined by the Dermatopathology Laboratory at [facility], directed by Dr. Aakash Farrell. These tests need not be, and therefore are not, approved by the [place] Food and Drug Administration. The tests are used for clinical purposes. Billing Codes Specimen Charges Stain Charges 75939 51435 72773 1 1 1 0 5:33 PM MAGAZINE REPAIRER DERMATOPATHOLOGY LABORATORY Embedded Images 0 5:33 PM MAGAZINE REPAIRER DERMATOPATHOLOGY LABORATORY Pathology/Cytology TISSUE SPECIMEN FROM SKIN / Unknown 10/07/2020 10/08/2020 6:42 AM MAGAZINE REPAIRER Miscellaneous samples (specimen) TISSUE SPECIMEN FROM SKIN / Unknown 10/07/2020 10/08/2020 6:42 AM MAGAZINE REPAIRER Miscellaneous samples (specimen) TISSUE SPECIMEN FROM SKIN / Unknown 10/07/2020 10/08/2020 6:42 AM MAGAZINE REPAIRER Karson Mays MD LAB - PATHOLOGY/CYTOLOGY ORDER JARED Final Result DERMATOPATHOLOGY LABORATORY [facility] - Department of Dermatology [facility] Specialized Medicine [address] [place] [address], [address] Floor [address] [phone] documented in this encounter Visit Diagnoses Not on filedocumented in this encounter Care Teams Director Alliance Marketing Relationship Specialty Start Date End Date Dick Ashton MD PCP - General Family Medicine 09/13/18 documented as of this encounter
--- OUTSIDE RECORDS SUMMARY | 2025-10-17 00:46 | XMS_ITS | Clinical Summary ---
Author Organization [facility] Address [address] [place] [address] Care Team Providers Care Vice President Of Advertising Name Role Phone Dick Ashton MD Primary Care Provider Source Comments [facility],non-owned Affiliates and Associated Physician Practices is amultiple site organization consisting of ambulatory clinics and hospital sitesin [place], [place], [place] and [place]. This disclosure is being madepursuant to the Care Everywhere program and may not contain all information available regarding this patient. Last updated 18.[facility] Exepron Allergies No known active allergies Medications * Be aware that medications may not be up to date on this document. Alwaysverify current medications with the patient. adalimumab (HUMIRA) 40 MG/0.8ML injection Inject 40 mg subcutaneously every 14 days Active aspirin EC (ECOTRIN) 81 MG tablet Take 81 mg by mouth once daily Active multivitamins plus minerals chew tablet Take 1 tablet by mouth daily with food Active Cholecalcifero l (VITAMIN D3) 400 UNITS tablet Take 400 Units by mouth once daily Active folic acid (FOLVITE) 1 MG tablet Take 1 mg by mouth once daily Active omeprazole (PRILOSEC) 40 MG capsule Take 40 mg by mouth daily before breakfast Active tamsulosin (FLOMAX) 0.4 MG capsule Take 0.4 mg by mouth once daily Take 30 minutes after a meal at the same time each day. Active terazosin (HYTRIN) 5 MG capsule Take 5 mg by mouth once daily Active HYDROcodone-ac etaminophen (NORCO) 5-325 MG tablet Take 1 tablet by mouth every 4 hours as needed for Pain Do not exceed 3 grams of acetaminophen (TYLENOL) daily. 15 tablet 8 Active acetaminophen- codeine (TYLENOL #3) 300-30 MG tablet 8 Active azaTHIOprine (IMURAN) 50 MG tablet 8 Active diclofenac sodium (VOLTAREN) 1 % gel 8 Active diphenoxylate- atropine (LOMOTIL) 2.5-0.025 MG tablet 8 Active loperamide (IMODIUM) 2 MG capsule 8 Active metoprolol succinate XL 24hr (TOPROL XL) 25 MG tablet 8 Active mirtazapine (REMERON) 15 MG tablet 8 Active CARAFATE 1 GM/10ML suspension 8 Active GATTEX 5 MG 8 Active venlafaxine XR 24hr (EFFEXOR XR) 150 MG capsule 8 Active terazosin (HYTRIN) 2 MG capsule 8 Active Active Problems Problem Noted Date Diagnosed Date Closed fracture of shaft of right humerus with routine healing 10/25/2018 Encounters Date Type Department Care Team Description 10/16/2025 Lab Requisition [facility] [address] [place] [id number] Kirsten Baker from Last 3 Months Social History Tobacco Use Types Packs/Day Years Used Date Smoking Tobacco: Never Smokeless Tobacco: Never Alcohol Use Standard Drinks/Week Comments Yes 2 (1 standard drink = 0.6 oz pur e alcohol) social Sex and Gender Information Value Date Recorded Sex Assigned at Not on file Legal Sex Male 9:37 PM MUSHROOM PACKER Gender Identity Not on file Sexual Orientation Not on file Last Filed Vital Signs Vital Sign Reading Time Taken Comments Blood Pressure 131/62 09/19/2018 3:00 PM MUSHROOM PACKER Pulse 95 09/19/2018 12:28 PM MUSHROOM PACKER Temperature 36.5 C (97.7 F) 09/19/2018 12:28 PM MUSHROOM PACKER Respiratory Rate 18 09/19/2018 12:28 PM MUSHROOM PACKER Oxygen Saturation 96% 09/19/2018 3:00 PM MUSHROOM PACKER Inhaled Oxygen Concentration - - Weight 81.6 kg (180 lb) 10/25/2018 4:59 PM MUSHROOM PACKER Height 170.2 cm (5' 7) 10/25/2018 4:59 PM MUSHROOM PACKER Body Mass Index 28.19 10/25/2018 4:59 PM MUSHROOM PACKER Plan of Treatment Health Maintenance Due Date Last Done Comments MEDICARE AWV 12 MONTHS 1945 COVID-19 VACCINE (#1) 1948 DTAP/TDAP/TD VACCINES (1 - Tdap) 1962 PNEUMOCOCCAL VACCINE 50+ (1 of 2 - PCV) 1962 ZOSTER VACCINE (1 of 2) 1962 Respiratory Syncytial Virus (RSV) Vaccine Pt: or over 60 yrs (1 - 1-dose 75+ series) 2018 DEPRESSION SCREENING 2024 INFLUENZA VACCINE (#1) 2025 HEPATITIS B VACCINE Aged Out No longe r eligible based on patient's age to complete this topic HIB VACCINE Aged Out No longer eligi ble based on patient's age to complete this topic HPV VACCINE Aged Out No longer eligi ble based on patient's age to complete this topic MENINGOCOCCAL (Group B) VACC INE SHARED DECISION-MAKING Aged Out No longer eligibl e based on patient's age to complete this topic MENINGOCOCCAL GROUPS A/C/Y/W VACCINE Aged Out No longer eligible b ased on patient's age to complete this topic Procedures Procedure Name Priority Date/Time Associated Diagnosis Comments COMPREHENSIVE METABOLIC PANEL STAT 10/16/2025 5:17 PM MUSHROOM PACKER from Last 3 Months Results * (ABNORMAL) COMPREHENSIVE METABOLIC PANEL (10/16/2025 5:17 PM MUSHROOM PACKER) Glucose 143(H) 70 - 99 mg/dL 10/16/2025 5:57 PM MUSHROOM PACKER [facility] Sodium 121(LL) 136 - 145 mmol/L 10/16/2025 5:57 PM MUSHROOM PACKER [facility] Potassium 5.1 3.5 - 5.1 mmol/L 10/16/2025 5:57 PM MUSHROOM PACKER [facility] Chloride 88(L) 98 - 107 mmol/L 10/16/2025 5:57 PM MUSHROOM PACKER [facility] CO2 15(L) 22 - 29 mmol/L 10/16/2025 5:57 PM [facility] Calcium 8.2(L) 8.4 - 10.4 mg/dL 10/16/2025 5:57 PM [facility] Anion Gap 18(H) 6 - 16 mmol/L 10/16/2025 5:57 PM [facility] BUN 55(H) 7 - 26 mg/dL 10/16/2025 5:57 PM [facility] Creatinine 11.48(H) 0.70 - 1.30 mg/dL 10/16/2025 5:57 PM [facility] Alkaline Phosphatase 100 40 - 150 U/L 10/16/2025 5:57 PM [facility] ALT 7 6 - 57 U/L 10/16/2025 5:57 PM [facility] AST 17 10 - 48 U/L 10/16/2025 5:57 PM [facility] Protein Total 7.0 6.4 - 8.3 gm/dL 10/16/2025 5:57 PM [facility] Albumin 2.6(L) 3.1 - 4.5 gm/dL 10/16/2025 5:57 PM [facility] Bilirubin Total 0.4 0.2 - 1.2 mg/dL 10/16/2025 5:57 PM [facility] eGFR by CKD-EPI 4(L) >=90 mL/min/1. 73 m2 10/16/2025 5:57 PM [facility] Comment:Estimated Glomerular Filtration Rate (eGFR) calculated using the CKD-EPI Creatinine Equation (2020), per the National Kidney Foundation and [place] [employer] Nephrology recommendations. Blood BLOOD SPECIMEN / Unknown Venipuncture / Unknown 10/16/2025 5:17 PM MUSHROOM PACKER 10/16/2025 5:17 PM MUSHROOM PACKER us Kirsten Pendegraft LAB - CHEMISTRY ORDERABLES Guerita christianson Result [facility] [address] [place], [place] [id number] from Last 3 Months Insurance [facility] MEDICARE [facility] MEDICARE Care Teams Vice President Of Advertising Relationship Specialty Start Date End Date Dick Ashton MD PCP - General Family Medicine 09/13/18
--- OUTSIDE RECORDS SUMMARY | 2025-10-17 00:46 | XMS_ITS | Encounter Summary ---
Author Organization [facility] Address [address] [place] [address] Care Team Providers Care Senior Oracle Database Developer Name Role Phone Dick Ashton MD Primary Care Provider Encounter Details Date Type Department Care Team (Late st Contact Info) Description 02/02/2020 Lab Requisition [facility] Care DermPath Lab [address] [place] [address] Karson Mays MD [address] [address] Social History Tobacco Use Types Packs/Day Years Used Date Smoking Tobacco: Never Smokeless Tobacco: Never Alcohol Use Standard Drinks/Week Comments Yes 2 (1 standard drink = 0.6 oz pur e alcohol) social Sex and Gender Information Value Date Recorded Sex Assigned at Not on file Legal Sex Male 9:37 PM X RAY SERVICE TECHNICIAN Gender Identity Not on file Sexual Orientation Not on file documented as of this encounter Plan of Treatment Not on file documented as of this encounter Procedures Procedure Name Priority Date/Time Associated Diagnosis Comments DERMATOPATHOLOGY Routine 02/01/2020 12:0 0 AM CDT documented in this encounter Results * DERMATOPATHOLOGY (02/01/2020 12:00 AM CDT) Case Report Dermatopathology Report Case: [id number] Authorizing Provider: Karson Mays MD Collected: 02/01/2020 12:00 AM Ordering Location: [facility] DermPath Lab Received: 02/02/2020 02:08 PM Pathologist: Vicky Villegas MD Specimen: Skin, right sideburn 0 1:51 PM CDT DERMATOPATHOLOGY LABORATORY Final Diagnosis Specimen A. SKIN, right sideburn: DERMAL SCAR WITH CALCINOSIS CUTIS (L94.2) RESIDUAL SQUAMOUS CELL CARCINOMA NOT IDENTIFIED (L90.5) 0 1:51 PM CDT DERMATOPATHOLOGY LABORATORY at 1351 CDT Clinical History Biopsy proven WD-SCCA. Path# [id number]. Check margins 0 1:51 PM CDT DERMATOPATHOLOGY LABORATORY Gross Description Specimen A: Received is one formalin filled container labeled with the patient's name and designated right sideburn. The specimen consists of a non-oriented ellipse of skin measuring [id number] mm. The epidermal surface is unremarkable. The margin is inked green. The 12 o'clock and 6 o'clock tips are submitted in cassette 1. The remainder of the ellipse is serially sectioned and submitted in cassette 2-3. Jar 0. 0 1:51 PM CDT DERMATOPATHOLOGY LABORATORY Microscopic Description Specimen A. SKIN, right sideburn: There are fibroblasts and collagen bundles oriented parallel to the skin surface. There are elongated blood vessels, some of which are oriented perpendicular to the skin surface. There is a focal aggregate of homogenous amorphous basophilic material consistent with calcium, seen in block A2. No residual squamous cell carcinoma is identified. 0 1:51 PM CDT DERMATOPATHOLOGY LABORATORY Disclaimer An external and internal positive and negative controls are appropriate for the histochemical, immunohistochemical and immunofluorescence stain(s) in this case (if any), except where stated explicitly. The performance characteristics of the stain(s) cited in this report were developed and its performance characteristic determined by the Dermatopathology Laboratory at [facility], directed by Dr. Aakash Farrell. These tests need not be, and therefore are not, approved by the [place] Food and Drug Administration. The tests are used for clinical purposes. Billing Codes Specimen Charges Stain Charges 35616 1 0 1:51 PM CDT DERMATOPATHOLOGY LABORATORY Embedded Images 0 1:51 PM CDT DERMATOPATHOLOGY LABORATORY Pathology/Cytolog y TISSUE SPECIMEN FROM SKIN / Unknown 02/01/2020 02/02/2020 2:08 PM CDT us Karson Mays MD LAB - PATHOLOGY/CYTOLOGY ORDER JARED Final Result DERMATOPATHOLOGY LABORATORY [facility] - Department of Dermatology [address] [place] [address], 5th Floor Lab [address] [phone] documented in this encounter Visit Diagnoses Not on filedocumented in this encounter Care Teams Senior Oracle Database Developer Relationship Specialty Start Date End Date Dick Ashton MD PCP - General Family Medicine 09/13/18 documented as of this encounter
[2025-10-17 00:48] LABS: Hematocrit 32.4 % (42.0-52.0); Hemoglobin 11.7 g/dL (14.0-18.0); Mean Corpuscular HGB Conc 36.1 g/dl (32-36); Mean Corpuscular Hemoglobin 32.0 pg (26-34); Mean Corpuscular Volume 88.5 fl (80-100); Platelet Count Result 237 k/mm3 (150-375); Red Blood Count 3.66 M/mm3 (4.6-6.20); White Blood Count 9.9 K/mm3 (4.5-10.0)
[2025-10-17 00:53] LABS: NT Pro B Type Natriuretic Pept 772 pg/mL (19.9-100)
[2025-10-17] MEDS: LACTATED RINGERS 1,000 ML 999 ML IV CONT (01:05)
[2025-10-17 01:10] LABS: Influenza A QL RT-PCR Negative (Negative); Influenza B QL RT-PCR Negative (Negative); RSV RNA, RT-PCR Negative (Negative); SARS-CoV-2 RNA PCR Negative (Negative)
[2025-10-17 01:16] LABS: Eosinophils Absolute Manual 0.19 K/mm3 (0.02-0.50); Eosinophils Percent Manual 2 % (0-4); Lymphocytes Absolute Manual 2.37 K/mm3 (1.1-4.5); Lymphocytes Percent Manual 24.0 % (18-44); Monocytes Absolute Manual 0.89 K/mm3 (0.1-0.90); Monocytes Percent Manual 9 % (3-9); Neutrophils Percent Manual 65 % (46-73); Total Cells Counted 100
[2025-10-17 01:17] LABS: Anisocytosis 1+; Burr Cells 1+; Ovalocytes 1+; Schistocytes Rare
--- NOTE | 2025-10-17 02:28 | PC.NURSE ---
This RN got off the phone with Edilma from [facility] transfer for [facility] in [place]. Pt was accepted by Dr. Rivera at this time. Edilma states we are waiting for bed assignment at this time.
--- NOTE | 2025-10-17 02:50 | PC.NURSE ---
This RN changed pt ostomy bag at this time. Rn removed old ostomy and cleaned the site prior to applying new ostomy bag. Rn continued to put on powder and ring for skin barrier prior to applying new ostomy bag as well.
[2025-10-17] MEDS: LACTATED RINGERS 1,000 ML 100 ML IV CONT (04:42)
--- NOTE | 2025-10-17 05:53 | PC.NURSE ---
This RN spoke with Michelle TOWNSEND from [facility] [place] with an update on pt status. will call back when EMS arrives for pt.
--- NOTE | 2025-10-17 06:00 | PC.NURSE ---
EMS here for pt. This RN called Michelle TOWNSEND from [facility] and reached voicemail. Voicemail left on update on pt status.
== END 2025-10-17 06:09 | disposition short-term general hospital (02) ==
LOC: ANHED 10-17 00:43
PROVIDERS: Emergency Provider Emergency Medicine
DX: N17.9 Acute kidney failure, unspecified (principal); E11.22 Type 2 diabetes mellitus with diabetic chronic kidney disease; N18.9 Chronic kidney disease, unspecified; C4A.4 Merkel cell carcinoma of scalp and neck; Z11.52 Encounter for screening for COVID-19; Z93.3 Colostomy status; R94.31 Abnormal electrocardiogram [ECG] [EKG]
CPT/HCPCS: 36415; 45399; 51702; 71045; 80053; 82570; 83880; 84300; 85025; 87637; 93005; 96360; 96361; 99285; J7120